=== PATIENT | male | born 1950 | race Caucasian/White ===

== ENCOUNTER → 2016-09-06 | Outpatient (CLI) | payer OTHER ==
--- NOTE | 2016-09-06 15:31 | DI ---
BILATERAL HIP EXAMS, 09/06/2016 10:31 AM: Clinical History: Right hip pain. Previous Exam: None at this facility. 2 views of each hip are obtained. There is no soft tissue, osseous, or joint abnormality. There is no evidence of femoroacetabular impingement in either hip. Reading: Normal bilateral hip exams.
== END ==
LOC: MOB RAD 10:38
PROVIDERS: ATTEND Internal Medicine
DX: M25.551 Pain in right hip (principal); N41.0 Acute prostatitis; E78.5 Hyperlipidemia, unspecified; Z98.84 Bariatric surgery status
CPT/HCPCS: 73521; 99214; G0463

== ENCOUNTER → 2016-10-07 | Outpatient (CLI) | payer OTHER ==
[2016-10-07 09:56] LABS: BLOOD UREA NITROGEN 16 mg/dL (7-22); BUN/CREATININE RATIO 13.33 (6-20); CALCIUM 8.6 mg/dL (8.7-10.7); CHOL/HDL RATIO 7.33 RATIO (0-4.0); EST GLOMERULAR FILTRATION > 60 (>60 ml/min/1.73m(2)); HDL CHOLESTEROL 33 mg/dL (40-150); SERUM CHOLESTEROL 242 mg/dL (120-200)
[2016-10-07 10:01] LABS: HEMATOCRIT 45.6 % (42.0-52.0); MEAN CORPUSCULAR HGB CONC 35.1 g/dL (33-37); MEAN CORPUSCULAR VOLUME 85.4 FL (80-90); MEAN PLATELET VOLUME 11.1 FL (7.4-12.2); NEUTROPHILS % (AUTO) 52.4 % (50-80); RED BLOOD COUNT 5.34 10^6/uL (4.70-6.10)
[2016-10-07 10:02] LABS: BASOPHILS # (AUTO) 0.08 10*3/UL; BASOPHILS % (AUTO) 1.6 % (0-1); EOSINOPHILS # (AUTO) 0.11 10*3/UL; EOSINOPHILS % (AUTO) 2.3 % (0-8); LYMPHOCYTES # (AUTO) 1.76 10*3/uL; MONOCYTES # (AUTO) 0.36 10*3/UL (0.3-0.8); MONOCYTES % (AUTO) 7.4 % (5-15); NEUTROPHILS # (AUTO) 2.56 10*3/UL; PLATELET MORPHOLOGY COMMENT NORMAL MORPHOLOGY (NORM); RBC MORPHOLOGY COMMENT NORMAL MORPHOLOGY (NORM); WBC MORPHOLOGY COMMENT NORMAL MORPHOLOGY (NORM)
[2016-10-07 11:32] LABS: FREE T4 (FREE THYROXINE) 1.15 ng/dL (0.93-1.71)
== END ==
LOC: LAB 09:29
PROVIDERS: ATTEND Internal Medicine
DX: E78.5 Hyperlipidemia, unspecified (principal); E03.9 Hypothyroidism, unspecified; K21.9 Gastro-esophageal reflux disease without esophagitis; N41.0 Acute prostatitis; Z12.5 Encounter for screening for malignant neoplasm of prostate; Z98.84 Bariatric surgery status
CPT/HCPCS: 36415; 80053; 80061; 82550; 84439; 84443; 85025; G0103

== ENCOUNTER → 2016-10-08 | Outpatient (CLI) | payer OTHER | LOC: MMPC 11:11 | PROVIDERS: ATTEND Internal Medicine | DX: M54.16 Radiculopathy, lumbar region (principal); N41.0 Acute prostatitis; I10 Essential (primary) hypertension; E03.9 Hypothyroidism, unspecified; F03.90 Unspecified dementia, unspecified severity, without behavioral disturbance, psychotic disturbance, mood disturbance, and anxiety; J44.9 Chronic obstructive pulmonary disease, unspecified; E66.9 Obesity, unspecified | CPT/HCPCS: 99214; G0463 ==

== ENCOUNTER → 2016-10-15 | Outpatient (CLI) | payer OTHER ==
--- NOTE | 2016-10-15 12:51 | DI ---
HISTORY: TECHNIQUE: Multiplanar multisequential images were obtained of the lumbar spine. FINDINGS: At L1/2 through L5/S1 there is disc bulging and superimposed bilateral foraminal herniatio ns causing mild bilateral foraminal stensosis. Normal conus medullaris terminating at L1. There is no evidence for acute compression fracture or subluxation. There is no spondylolisthesis or spondyl olysis. IMPRESSION: 1. At L1/2 through L5/S1 there is disc bulging and superimposed small bilateral foraminal herniation s causing mild bilateral foraminal stenosis.
== END ==
LOC: MRI 10:26
PROVIDERS: ATTEND Internal Medicine
DX: M54.16 Radiculopathy, lumbar region (principal); M51.17 Intervertebral disc disorders with radiculopathy, lumbosacral region
CPT/HCPCS: 72148

== ENCOUNTER → 2016-11-27 | Outpatient (CLI) | payer OTHER ==
--- NOTE | 2016-11-27 22:05 | DI ---
LUMBAR SPINE SERIES, 11/27/2016 9:29 AM: Clinical History: Back pain. Previous Exam: None at this facility. Upright AP and lateral and upright lateral flexion and extension views are submitted. The vertebral b odies are of normal height and size. There is mild L1-2 disc space narrowing with severe narrowing at L4-5 and L5-S1. Posterior alignment is normal and there is no instability noted with flexion and ext ension maneuvers. The pedicles are normal. Degenerative arthritic changes are present in the lower ap ophyseal joints bilaterally primarily between L3-4 and L5-S1. Both SI joints are normal. Readin. Disc space narrowing at L1-2, L4-5, and L5-S1 with arthritic changes in the apophyseal joints [place] aterally between L3-4 and L5-S1. 2. No instability is noted with flexion and extension maneuvers.
== END ==
LOC: RAD 09:12
PROVIDERS: ATTEND Physician Assistant
DX: M54.5 Low back pain (principal); M47.26 Other spondylosis with radiculopathy, lumbar region; M48.06 Spinal stenosis, lumbar region; Z98.1 Arthrodesis status
CPT/HCPCS: 72110; 99214

== ENCOUNTER → 2016-11-27 | Outpatient (CLI) | payer OTHER | LOC: MMPC 10:00 | PROVIDERS: ATTEND Physician Assistant | DX: M47.26 Other spondylosis with radiculopathy, lumbar region (principal) ==